=== PATIENT | female | born 1980 | race Caucasian/White ===

== ENCOUNTER → 2019-02-09 | Outpatient (CLI) | payer BC ==
[2019-02-09 13:07] LABS: ALBUMIN 4.6 g/dL (3.5-5.0); CALCIUM 9.5 mg/dL (8.4-10.2); PHOSPHORUS 3.6 mg/dL (2.5-4.5)
== END ==
LOC: OD 10:53
PROVIDERS: ATTEND Otolaryngology
DX: E04.2 Nontoxic multinodular goiter (principal)
CPT/HCPCS: 36415; 82040; 82306; 82310; 83735; 83970; 84100

== ENCOUNTER 2019-03-28 11:27 | Day surgery (SDC) | payer BC ==
[~2019-03-28 11:27] MED LIST: CEFAZOLIN SODIUM 2 GM in DEXTROSE 5%-WATER 100 ML IV PRN; LACTATED RINGERS 1000 ML IV PRN; SUCCINYLCHOLINE CHLORIDE INJ 200 MG/10 ML VIAL ONE
[2019-03-28] MEDS ORDERED: FENTANYL CITRATE INJ/PF 100 MCG/2 ML AMPUL ONE ×2 (12:16→12:29)
[2019-03-28] MEDS ORDERED: ONDANSETRON HCL INJ/PF 4 MG/2 ML SDV ONE ×2 (12:16→16:37)
[2019-03-28] MEDS ORDERED: DEXAMETHASONE SOD PHOSPHATE INJ 4 MG/1 ML VIAL ONE (12:16)
[2019-03-28] MEDS ORDERED: PROMETHAZINE HCL INJ 25 MG/1 ML VIAL ONE (12:16)
[2019-03-28] MEDS ORDERED: HYDROMORPHONE HCL INJ/PF 2 MG/ML AMPULE ONE (12:16)
[2019-03-28] MEDS ORDERED: MIDAZOLAM 2 MG/2 ML INJ ONE (12:16)
[2019-03-28] MEDS ORDERED: PROPOFOL INJ 200 MG/20 ML VIAL IV ONE (12:17)
[2019-03-28] MEDS ORDERED: OXYMETAZOLINE HCL 0.05% NASAL SPRAY 15 ML BOTTLE ONE (12:43)
[2019-03-28] MEDS ORDERED: LIDOCAINE 2%/EPINEPHRINE INJ 1.7 ML CARTRIDGE ONE (12:43)
[2019-03-28] MEDS ORDERED: FENTANYL CITRATE INJ/PF 100 MCG/2 ML AMPUL INJ ONE (12:45)
[2019-03-28 13:39] LABS: HEMOGLOBIN 12.8 g/dL (12.0-15.5); MEAN CORPUSCULAR HEMOGLOBIN 29.5 pg (27.0-33.4); MEAN CORPUSCULAR HGB CONC 33.5 g/dL (32.0-36.0); MEAN CORPUSCULAR VOLUME 88 fl (80-97); PLATELET COUNT 230 10^3/uL (150-450); RED BLOOD COUNT 4.33 10^6/uL (3.72-5.28); RED CELL DISTRIBUTION WIDTH 14.4 % (11.5-14.0); WHITE BLOOD COUNT 7.5 10^3/uL (4.0-10.5)
[2019-03-28] MEDS ORDERED: PROMETHAZINE HCL INJ 25 MG/1 ML VIAL IV PRN (13:41)
[2019-03-28] MEDS ORDERED: MORPHINE SULFATE 10 MG/ML INJ IV PRN (13:41)
[2019-03-28] MEDS ORDERED: OXYCODONE-ACETAMINOPHEN 5-325 MG TABLET PO PRN ×2 (13:41)
[2019-03-28] MEDS ORDERED: MEPERIDINE HCL/PF INJ 25 MG/1 ML DISP.SYRIN IV PRN (13:41)
[2019-03-28] MEDS ORDERED: FENTANYL CITRATE INJ/PF 100 MCG/2 ML AMPUL IV PRN ×3 (13:41)
[2019-03-28] MEDS ORDERED: ONDANSETRON HCL INJ/PF 4 MG/2 ML SDV IV PRN (13:41)
[2019-03-28] MEDS ORDERED: DIPHENHYDRAMINE HCL 50 MG/ML VIAL IV PRN (13:41)
--- NOTE | 2019-03-28 15:50 | Operative Report ---
Operative Report-[facility] Operative Report: Date: 28 March 2019 History: Patient with a history of a left thyroid nodule, FNA revealed a class III [place] classification. Patient was counseled and decided to proceed with a total thyroidectomy. Informed consent was obtained for the patient. Preoperative Diagnosis: Left thyroid nodule Postoperative Diagnosis: Same as above Procedure: 1. Total thyroidectomy 2. Flexible fiber optic nasopharyngolaryngoscope Surgeon: Judah Carrion MD, FACS. [facility] Assisting surgeon: Maksim Carroll DO Anesthesia: General using a laryngeal EMG tube Description of the procedure: After receiving informed consent, the patient was brought to the operating room and play supine on the operating room table. After successful induction and intubation using a laryngeal EMG tube, a shoulder roll was place to extend the neck. The nerve integrity monitor was calibrated and found to be functioning normally. The planned incision site was marked with a surgical pen and infiltrated with 2% Lidocaine with 1 to 100,000 epinephrine. The patient was then prepped and draped in a sterile fashion. A 15 blade was used to make the incision through the skin, subcutaneous layer and platysma. Using Bovee electrocautery, sub platysmal flaps were elevated superiorly and inferiority. Midline was identified and the strap muscles were . The left sternothyroid muscle was identified and from the thyroid lobe. Attention was then directed superiorly where the superior lobe of the thyroid was carefully from surrounding tissue. The superior vasculature was identified and then sealed and ligated with the Ligasure. A superior parathyroid prospect was identified and preserved. Attention was then directed inferiority, where the inferior lobe of the thyroid was carefully dissected from surrounding tissue. The trachea was a identified medially. The inferior thyroid vascularure was identified and then sealed and ligated using the Ligasure. And inferior parathyroid prospect was identified and preserved. The dissection then continued from a lateral to medial direction moving towards Berrys ligament.The recurrent laryngeal nerve was identified and stimulated using the Prass probe. It was found to be intact and functioning normally.The dissection then continued medially, over the anterior trachea, releasing Berrys ligament. The isthmus was dissected from the anterior tracheal wall and attention was then directed to the right thyroid lobe. The right lobe was removed in a similar fashion. The recurrent laryngeal nerve was identified and stimulated using the Prass probe. It was found to be intact. A superior and inferior parathyroid prospects were identified and preserved. Hemostasis was obtained with bipolar electrocautery. The wound was irrigated with copious amounts of normal Saline. No bleeding was noted. Surgicel was placed into the thyroid bed. The wound was closed in layers. The strap muscles, platysma and subcutaneous tissue were closed using 4-0 Monocryl. The dermal layer was closed using 4-0 Monocryl. Dermabond, mastisol and steristrips were then applied. A small dressing placed. The patient was then given back to anesthesia who successfully extubated the patient without any complications. A flexible fiber-optic laryngoscope was the. placed through the nasal cavity down to the laryngeal inlet. The vocal cords were visualized and found to be mobile bilaterally. Estimated blood loss: 20 mL Fluids: 1200 mL The patient was then transported to the post anesthesia care unit in stable condition with spontaneous respirations.
[2019-03-28] MEDS ORDERED: MORPHINE SULFATE 10 MG/ML INJ ONE (16:38)
[2019-03-28] MEDS ORDERED: HYDROCODONE/ACETAMINOPHEN 5-325 MG TABLET ONE (17:38)
[2019-03-28] MEDS ORDERED: CALCITRIOL 0.25 MCG CAPSULE PO ONE (19:00)
[2019-03-28] MEDS ORDERED: CALCIUM CARBONATE 500 MG TAB.CHEW PO ONE (19:00)
[2019-03-28 19:56] VITALS: BP 113/66
== END 2019-03-28 19:45 | disposition home or self-care (01) ==
LOC: OROUT 11:27
PROVIDERS: ATTEND Otolaryngology
DX: E04.2 Nontoxic multinodular goiter (principal); E06.3 Autoimmune thyroiditis; Z79.899 Other long term (current) drug therapy; Z87.891 Personal history of nicotine dependence
CPT/HCPCS: 36415; 85027; 83970; 88307 ×2; 00320; 60240; 92511; J2250; J3490; J0690; J1100; J3010; J2270; J1170; J2550; J0330; J2405; J7060; J2704; 320